=== PATIENT | female | born 1990 | race Caucasian/White ===

== ENCOUNTER 2016-07-28 19:11 | Outpatient (CLI) | payer OTHER ==
[2016-12-18] MEDS ORDERED: COLACE 100MG C100 MG PO (11:00)
== END 2016-07-28 20:30 | disposition home or self-care (01) ==
LOC: GENOP 19:11
DX: O26.892 Other specified pregnancy related conditions, second trimester (principal); O23.42 Unspecified infection of urinary tract in pregnancy, second trimester; R10.9 Unspecified abdominal pain; Z3A.20 20 weeks gestation of pregnancy
CPT/HCPCS: 87086; G0463

== ENCOUNTER → 2016-10-31 | Outpatient (CLI) | payer OTHER ==
[~2016-10-31] MED LIST: COLACE 100MG C100 MG PO
== END ==
LOC: HEART 5 14:25
DX: R00.2 Palpitations (principal)
CPT/HCPCS: 93306

== ENCOUNTER 2016-11-19 19:01 | Outpatient (CLI) | payer OTHER ==
[2016-12-18] MEDS ORDERED: COLACE 100MG C100 MG PO (11:00)
== END 2016-11-20 00:12 | disposition home or self-care (01) ==
LOC: GENOP 19:01
DX: O99.89 Other specified diseases and conditions complicating pregnancy, childbirth and the puerperium (principal); R10.9 Unspecified abdominal pain; R10.2 Pelvic and perineal pain; Z3A.36 36 weeks gestation of pregnancy
CPT/HCPCS: G0463

== ENCOUNTER 2021-05-06 11:38 | Emergency (ER) | payer OTHER ==
[2021-05-06 13:02] LABS: HEMOGLOBIN 12.4 gm/dl (12.3-15.3); RED BLOOD COUNT 4.13 M/UL (4.00-5.10); WHITE BLOOD COUNT 6.8 K/UL (4.5-11.0)
[2021-05-06 13:49] LABS: BUN/CREATININE RATIO 12 (0-10)
[2021-05-06] MEDS ORDERED: HYDROCHLOROTHIA25 MG PO (15:07)
== END 2021-05-06 16:12 | disposition home or self-care (01) ==
LOC: ER1 11:38
PROVIDERS: Physician Assistant
DX: I10 Essential (primary) hypertension (principal); F17.200 Nicotine dependence, unspecified, uncomplicated; Z88.0 Allergy status to penicillin; Z88.1 Allergy status to other antibiotic agents
CPT/HCPCS: 71045; 80053; 81001; 82550; 82553; 83874; 84484; 85025; 93005; 99284